=== PATIENT | female | born 1960 | race Caucasian/White ===

== ENCOUNTER 2017-11-22 23:56 | Inpatient (IN) | payer OTHER ==
[~2017-11-22] VITALS: Ht 152.4 cm; Wt 75.7 kg
[2017-11-23] VITALS (21 sets, daily range): BP systolic 92–128; BP diastolic 60–103
[2017-11-23] MEDS ORDERED: SODIUM CHLORIDE 0.9% 1,000 ML IV ONE (00:08)
[2017-11-23] MEDS ORDERED: ONDANSETRON HCL 4MG/2ML VIAL IV STA (00:08)
[2017-11-23] MEDS ORDERED: SODIUM CHLORIDE 0.9% 1,000 ML IV SCH (01:35)
[2017-11-23] MEDS ORDERED: ENOXAPARIN 60MG/0.6ML SYR SUBCUT ONE (01:45)
[2017-11-23 01:58] LABS: CHLORIDE 103 mEq/L (98-107)
[2017-11-23 02:00] LABS: BASOPHILS % 0.4 % (0.0-2.0); EOSINOPHILS % 0.7 % (0.0-5.0); HEMATOCRIT. 33.1 % (36.0-48.0); HEMOGLOBIN. 11.5 g/dL (12.0-16.0); LYMPHOCYTES % 10.7 % (20.0-50.0); MEAN CORPUSCULAR HEMOGLOBIN 31.3 pg (28.0-32.0); MEAN CORPUSCULAR VOLUME 89.7 fL (81.0-99.0); MONOCYTES % 10.8 % (2.0-8.0); NEUTROPHILS % 77.4 % (40.0-76.0); PLATELET 192 x1000/uL (130-400); RED BLOOD CELL COUNT 3.69 mill/uL (4.2-5.4); RED CELL DISTRIBUTION WIDTH 12.6 % (11.6-14.6)
[2017-11-23 02:01] LABS: INR 1.1; PROTHROMBIN TIME 11.5 sec (9.1-11.1)
[2017-11-23] MEDS ORDERED: IOHEXOL-350 100 ML BOTTLE ONE (02:25)
[2017-11-23 02:37] LABS: CLARITY URINE CLEAR (CLEAR); COLOR URINE YELLOW (YELLOW); KETONES URINE NEGATIVE (NEGATIVE); LEUKOCYTE ESTERASE URINE 1+ (NEGATIVE); NITRITE URINE NEGATIVE (NEGATIVE); OCCULT BLOOD URINE 2+ (NEGATIVE); PH URINE 5.5 (4.5-8.0); PROTEIN URINE TRACE (NEGATIVE); SPECIFIC GRAVITY URINE 1.022 (1.005-1.030); UROBILINOGEN URINE 0.2 E.U./dL (0.2-1.0)
[2017-11-23] MEDS ORDERED: MORPHINE SULFATE 4 MG/ML CPJ (NOT FOR IM USE) IV ONE (03:00)
[2017-11-23] MEDS ORDERED: SODIUM CHLORIDE 0.9% 1,000 ML IV NR (04:00)
[2017-11-23] MEDS ORDERED: GABA-531 MT (05:15)
[2017-11-23] MEDS ORDERED: ASPI-1159 MT (05:15)
[2017-11-23] MEDS ORDERED: LISI10TA5 MT (05:15)
[2017-11-23] MEDS ORDERED: VENL25TA4 MT (05:15)
[2017-11-23] MEDS: SODIUM CHLORIDE 0.9% 1,000 ML IV SCH ×2 (06:10→17:35)
[2017-11-23] MEDS ORDERED: SODIUM CHLORIDE 0.9% 250 ML IV NR (07:00)
[2017-11-23] MEDS ORDERED: IPRATROPIUM/ALBUTEROL 0.5-3(2.5)MG/3ML NEB HHN SCH (08:00)
[2017-11-23] MEDS ORDERED: IPRATROPIUM/ALBUTEROL 0.5-3(2.5)MG/3ML NEB HHN PRN (09:30)
[2017-11-23] MEDS ORDERED: DOCUSATE SODIUM 100MG CAPSULE PO PRN (09:45)
[2017-11-23] MEDS ORDERED: ACETAMINOPHEN 650MG/20.3ML UDC GT PRN (09:45)
[2017-11-23] MEDS ORDERED: LORAZEPAM 2MG/ML CPJ IV PRN (09:45)
[2017-11-23] MEDS ORDERED: HYDROCODONE/ACETAMINOPHEN 10/325MG TABLET PO PRN (09:45)
[2017-11-23] MEDS ORDERED: ACETAMINOPHEN 650MG SUPP PR PRN (09:45)
[2017-11-23] MEDS ORDERED: HYDROCODONE/ACETAMINOPHEN 5/325MG TABLET PO PRN (09:45)
[2017-11-23] MEDS ORDERED: ACETAMINOPHEN 325MG TABLET PO PRN (09:45)
[2017-11-23] MEDS ORDERED: ONDANSETRON 4MG ODT PO PRN (09:45)
[2017-11-23] MEDS ORDERED: MAGNESIUM/ALUMINUM HYDROXIDE/SIMETHICONE 30ML UDC PO PRN (09:45)
[2017-11-23] MEDS ORDERED: GUAIFENESIN 200MG/10ML SUGAR FREE UDC PO PRN (09:45)
[2017-11-23] MEDS: DOCUSATE SODIUM 100MG CAPSULE PO SCH (10:23)
[2017-11-23] MEDS ORDERED: OXYCODONE HCL 5MG TABLET PO PRN (10:30)
[2017-11-23] MEDS ORDERED: OXYCODONE HCL 10MG TABLET SR 12HR PO PRN (10:30)
[2017-11-23] MEDS: ASPIRIN 81MG TABLET PO SCH (10:49)
[2017-11-23] MEDS: OXYCODONE HCL 5MG TABLET PO PRN ×3 (10:50→19:55)
[2017-11-23] MEDS: POLYETHYLENE GLYCOL 3350 (17GM) 1 DOSE PACK PO SCH ×2 (10:50→16:29)
[2017-11-23] MEDS: OXYCODONE HCL 10MG TABLET SR 12HR PO SCH ×2 (12:23→21:13)
[2017-11-23 12:30] LABS: BASOPHILS % 0.4 % (0.0-2.0); EOSINOPHILS % 1.8 % (0.0-5.0); HEMATOCRIT. 29.3 % (36.0-48.0); HEMOGLOBIN. 10.2 g/dL (12.0-16.0); LYMPHOCYTES % 20.1 % (20.0-50.0); MEAN CORPUSCULAR HEMOGLOBIN 30.9 pg (28.0-32.0); MEAN CORPUSCULAR VOLUME 89.1 fL (81.0-99.0); MEAN PLATELET VOLUME 8.3 fl (7.4-10.4); MONOCYTES % 11.4 % (2.0-8.0); NEUTROPHILS % 66.3 % (40.0-76.0); PLATELET 176 x1000/uL (130-400); RED BLOOD CELL COUNT 3.29 mill/uL (4.2-5.4); RED CELL DISTRIBUTION WIDTH 12.7 % (11.6-14.6)
[2017-11-23 13:03] LABS: CHLORIDE 108 mEq/L (98-107)
[2017-11-23 13:12] LABS: TOTAL IRON BINDING CAPACITY 206 ug/dL (250-450)
[2017-11-23] MEDS: GABAPENTIN 300MG CAPSULE PO SCH ×2 (13:22→21:11)
[2017-11-23] MEDS: ENOXAPARIN 80MG/0.8ML SYR SUBCUT SCH (13:22)
[2017-11-23 13:27] LABS: FOLIC ACID (FOLATE) SERUM 15.3 ng/mL (>5.38)
[2017-11-23] MEDS ORDERED: POTASSIUM CHLORIDE 20MEQ TABLET SR PO SCH (13:45)
[2017-11-23 17:19] LABS: CREATINE KINASE MB FRACTION 1.3 ng/mL (0.5-3.6)
[2017-11-23] MEDS: SODIUM CHL 0.45% + KCL 20MEQ/L 1,000 ML IV SCH (18:26)
[2017-11-23 19:22] LABS: *AMPHETAMINES SCREEN URINE NEGATIVE (NEGATIVE); *BARBITURATES SCREEN URINE NEGATIVE (NEGATIVE); *BENZODIAZEPINES SCREEN URINE NEGATIVE (NEGATIVE); *COCAINE SCREEN URINE NEGATIVE (NEGATIVE)
[2017-11-23 19:23] LABS: CANNABINOID URINE SCREEN NEGATIVE (NEGATIVE); METHADONE URINE SCREEN NEGATIVE (NEGATIVE); OPIATES URINE SCREEN PRESUMTIVE POSITIVE (NEGATIVE); PHENCYCLIDINE URINE SCREEN NEGATIVE (NEGATIVE)
[2017-11-23] MEDS ORDERED: MORPHINE SULFATE 4 MG/ML CPJ (NOT FOR IM USE) IV PRN (20:45)
[2017-11-23] MEDS: VENLAFAXINE HCL 37.5MG TABLET PO SCH (21:12)
[2017-11-23] MEDS: SENNOSIDES/DOCUSATE SOD 8.6/50MG TABLET PO PRN (21:12)
[2017-11-24] VITALS (26 sets, daily range): BP systolic 91–149; BP diastolic 51–101
[2017-11-24 00:34] LABS: CREATINE KINASE 150 IU/L (26-192)
[2017-11-24 00:35] LABS: CREATINE KINASE MB FRACTION < 1.0 ng/mL (0.5-3.6)
[2017-11-24] MEDS: ENOXAPARIN 80MG/0.8ML SYR SUBCUT SCH ×2 (01:16→13:06)
[2017-11-24] MEDS: SODIUM CHL 0.45% + KCL 20MEQ/L 1,000 ML IV SCH ×2 (03:53→13:05)
[2017-11-24] MEDS: MORPHINE SULFATE 4 MG/ML CPJ (NOT FOR IM USE) IV PRN ×3 (05:43→20:21)
[2017-11-24] MEDS ORDERED: HYDROCODONE/ACETAMINOPHEN 5/325MG TABLET PO PRN (09:00)
[2017-11-24] MEDS ORDERED: GABAPENTIN 300MG CAPSULE PO SCH ×2 (09:00→21:00)
[2017-11-24] MEDS: ASPIRIN 81MG TABLET PO SCH (09:06)
[2017-11-24] MEDS: DOCUSATE SODIUM 100MG CAPSULE PO SCH (09:07)
[2017-11-24] MEDS: OXYCODONE HCL 10MG TABLET SR 12HR PO SCH ×2 (09:07→19:10)
[2017-11-24] MEDS: VENLAFAXINE HCL 37.5MG TABLET PO SCH ×2 (09:07→20:20)
[2017-11-24] MEDS: POLYETHYLENE GLYCOL 3350 (17GM) 1 DOSE PACK PO SCH ×2 (09:20→17:55)
[2017-11-24] MEDS ORDERED: LORAZEPAM 2MG/ML CPJ IV PRN (09:45)
[2017-11-24 10:46] LABS: BASOPHILS % 0.3 % (0.0-2.0); EOSINOPHILS % 2.7 % (0.0-5.0); HEMATOCRIT. 28.9 % (36.0-48.0); HEMOGLOBIN. 10.3 g/dL (12.0-16.0); MEAN CORPUSCULAR HEMOGLOBIN 31.6 pg (28.0-32.0); MEAN PLATELET VOLUME 8.9 fl (7.4-10.4); MONOCYTES % 11.2 % (2.0-8.0); NEUTROPHILS % 65.8 % (40.0-76.0); PLATELET 191 x1000/uL (130-400); RED BLOOD CELL COUNT 3.24 mill/uL (4.2-5.4); RED CELL DISTRIBUTION WIDTH 12.6 % (11.6-14.6)
[2017-11-24 12:24] LABS: CHLORIDE 107 mEq/L (98-107)
[2017-11-24 12:30] LABS: PHOSPHORUS 2.6 mg/dL (2.5-4.9)
[2017-11-24 12:31] LABS: LDL CHOLESTEROL 93 mg/dL (5-100)
[2017-11-24 12:33] LABS: HDL CHOLESTEROL 27 mg/dL (40-59)
[2017-11-24 12:34] LABS: T4 FREE 1.01 ng/dL (0.76-1.46)
[2017-11-24] MEDS: SENNOSIDES/DOCUSATE SOD 8.6/50MG TABLET PO PRN (20:20)
== END 2017-11-24 23:42 | disposition short-term general hospital (02) | DRG 175 ==
LOC: ER 23:56 → CVICU 11-23 01:37 → OBSVTOIN 11-23 01:37 → ENRESERV 11-23 03:45
PROVIDERS: ADMIT Internal Medicine; ATTEND Internal Medicine
DX: I26.99 Other pulmonary embolism without acute cor pulmonale (principal); J96.00 Acute respiratory failure, unspecified whether with hypoxia or hypercapnia; D68.59 Other primary thrombophilia; D64.9 Anemia, unspecified; R55 Syncope and collapse; E87.6 Hypokalemia; Z96.651 Presence of right artificial knee joint; G89.4 Chronic pain syndrome; I10 Essential (primary) hypertension; J45.909 Unspecified asthma, uncomplicated; K59.00 Constipation, unspecified; M79.7 Fibromyalgia; Z79.01 Long term (current) use of anticoagulants; Z82.3 Family history of stroke
CPT/HCPCS: 36415; 71045; 71275; 74018; 80048; 80053; 80061; 80305; 81003; 82040; 82550; 82553; 82607; 82728; 82746; 83540; 83550; 83605; 83735; 83880; 84100; 84439; 84443; 84481; 84484; 85025; 85610; 86850; 86900; 87040; 93005; 93306; 93970; 96372; 96374; 97110; 97162; 97530; 99291; J1650; J2270; J2405; J3480; J7030; J7050; Q0162; Q9967

== ENCOUNTER 2018-11-16 10:11 | Emergency (ER) | payer OTHER ==
[~2018-11-16] VITALS: Ht 152.4 cm; Wt 71.0 kg
[~2018-11-16 10:11] MED LIST: ASPI-1393 MT; GABA-531 MT; LISI10TA5 MT; VENL25TA4 MT
[2018-11-16] MEDS ORDERED: ONDANSETRON HCL 4MG/2ML INJ IV STA (11:14)
[2018-11-16 11:45] LABS: BASOPHILS % 0.4 % (0.0-2.0); EOSINOPHILS % 3.4 % (0.0-5.0); HEMATOCRIT. 39.3 % (36.0-48.0); HEMOGLOBIN. 13.8 g/dL (12.0-16.0); LYMPHOCYTES % 22.1 % (20.0-50.0); MEAN CORPUSCULAR HEMOGLOBIN 31.1 pg (28.0-32.0); MEAN CORPUSCULAR VOLUME 88.8 fL (81.0-99.0); MEAN PLATELET VOLUME 8.4 fl (7.4-10.4); MONOCYTES % 7.6 % (2.0-8.0); NEUTROPHILS % 66.5 % (40.0-76.0); PLATELET 293 x1000/uL (130-400); RED BLOOD CELL COUNT 4.43 mill/uL (4.2-5.4); RED CELL DISTRIBUTION WIDTH 13.2 % (11.6-14.6)
[2018-11-16 11:47] LABS: CHLORIDE 112 mEq/L (98-107)
[2018-11-16 14:50] VITALS: BP 140/86
[2018-11-16] MEDS ORDERED: IOHEXOL-350 100 ML BOTTLE ONE (15:50)
== END 2018-11-16 15:29 | disposition home or self-care (01) ==
LOC: ER 10:11
DX: R55 Syncope and collapse (principal); R07.89 Other chest pain; R42 Dizziness and giddiness; J45.909 Unspecified asthma, uncomplicated; I10 Essential (primary) hypertension; Z98.890 Other specified postprocedural states; Z79.82 Long term (current) use of aspirin; Z79.899 Other long term (current) drug therapy
CPT/HCPCS: 36415; 71045; 71275; 80053; 82962; 83880; 84484; 85025; 85379; 93005; 96374; 99284; J2405; Q9967

== ENCOUNTER 2024-05-02 14:35 | Emergency (ER) | payer OTHER ==
[~2024-05-02] VITALS: Ht 157.5 cm; Wt 60.0 kg
[~2024-05-02 14:35] MED LIST changes: -ASPI-1393 MT; +ASPI-1497 MT; +GABA-1180 MT; -GABA-531 MT; +LISI10TA26 MT; -LISI10TA5 MT
[2024-05-02 14:37] VITALS: O2SAT 96
[2024-05-02] MEDS: SODIUM CHLORIDE 0.9% 1,000 ML IV ONE (15:04)
[2024-05-02 15:05] LABS: BASOPHILS % 0.5 % (0.0-2.0); EOSINOPHILS % 1.3 % (0.0-5.0); HEMATOCRIT. 37.6 % (36.0-48.0); LYMPHOCYTES % 15.6 % (20.0-50.0); MEAN CORPUSCULAR HEMOGLOBIN 31.8 pg (28.0-32.0); MEAN CORPUSCULAR HGB CONC 34.6 g/dL (31.0-37.0); MEAN CORPUSCULAR VOLUME 92.1 fL (81.0-99.0); MEAN PLATELET VOLUME 7.7 fl (7.4-10.4); MONOCYTES % 11.2 % (2.0-8.0); NEUTROPHILS % 71.4 % (40.0-76.0); PLATELET 267 x1000/uL (130-400); RED BLOOD CELL COUNT 4.09 mill/uL (4.2-5.4); RED CELL DISTRIBUTION WIDTH 12.6 % (11.6-14.6); WHITE BLOOD COUNT 6.7 x1000/uL (4.5-11.0)
[2024-05-02 15:13] LABS: CHLORIDE 107 mEq/L (98-107); POTASSIUM 3.4 mEq/L (3.5-5.1); SODIUM 141 mEq/L (136-145)
[2024-05-02 15:14] LABS: CALCIUM 8.6 mg/dL (8.7-10.4); CARBON DIOXIDE 27 mEq/L (21-32)
[2024-05-02 15:19] LABS: CREATININE 1.3 mg/dL (0.6-1.0); GLUCOSE 95 mg/dL (70-105); UREA NITROGEN BLOOD 15 mg/dL (9-23)
[2024-05-02 15:28] LABS: TROPONIN I HIGH SENSITIVITY < 4 ng/L (3.0-34)
[2024-05-02] MEDS: ACETAMINOPHEN 325MG TABLET PO ONE (18:04)
[2024-05-02 18:12] LABS: CLARITY URINE CLEAR (CLEAR); COLOR URINE YELLOW (YELLOW); GLUCOSE URINE NEGATIVE (NEGATIVE); KETONES URINE NEGATIVE (NEGATIVE); LEUKOCYTE ESTERASE URINE 1+ (NEGATIVE); NITRITE URINE NEGATIVE (NEGATIVE); OCCULT BLOOD URINE 1+ (NEGATIVE); PH URINE 6.5 (4.5-8.0); PROTEIN URINE NEGATIVE (NEGATIVE); SPECIFIC GRAVITY URINE 1.011 (1.005-1.030); UROBILINOGEN URINE 0.2 E.U./dL (0.2-1.0)
[2024-05-02 18:37] LABS: BACTERIA URINE TRACE; SQUAMOUS EPITHELIAL CELL URINE FEW /lpf (RARE/1+)
[2024-05-02] MEDS ORDERED: TOPUD MT (19:41)
[2024-05-02] MEDS ORDERED: IBUP-2029 MT (19:41)
[2024-05-02] MEDS ORDERED: TAM75 MT (19:41)
[2024-05-02] MEDS ORDERED: DEXT30SU17 MT (19:41)
[2024-05-02 20:35] VITALS: BP 112/72; PULSE 85; RESP 20; TEMP 36.89184; O2SAT 96
== END 2024-05-02 21:02 | disposition home or self-care (01) ==
LOC: ER 14:35
DX: R55 Syncope and collapse (principal); J45.909 Unspecified asthma, uncomplicated; I10 Essential (primary) hypertension; Z79.899 Other long term (current) drug therapy; Z79.82 Long term (current) use of aspirin; Z20.822 Contact with and (suspected) exposure to COVID-19
CPT/HCPCS: 80048; 81003; 85025; 84484; 87804 ×2; 36415; 93005; 99285; 87426; Z7610